=== PATIENT | female | born 1985 | race Two or more races ===

== ENCOUNTER 2021-05-08 12:10 | Inpatient (IN) | payer OTHER ==
[2021-05-08] MEDS: ELECTROLYTE-148 SOLN 1,000 ML IV SCH ×2 (13:15→15:30)
[2021-05-08 14:29] LABS: BASO % 0.3 % (0-2.0); EOS % 0.3 % (0-4.5); HEMOGLOBIN 12.7 GM/dL (10.7-15.3); LYMPH % 12.4 % (8-40); MCH 29.2 pg (25.7-33.7); MCHC 32.7 g/dl (32.0-36.0); MEAN CELL VOLUME 89.4 fl (80-96); MEAN PLT VOLUME 10.2 fl (7.5-11.1); PLATELET COUNT 211 10^3/uL (134-434); RBC 4.36 M/mm3 (3.60-5.2); RDW 14.2 % (11.6-15.6); WHITE BLOOD COUNT 11.5 K/mm3 (4.0-10.0)
[2021-05-08 14:41] LABS: INR 0.96 (0.83-1.09); PROTHROMBIN TIME (PATIENT) 11.8 SEC (9.7-13.0)
[2021-05-08] MEDS ORDERED: CITRIC ACID/SODIUM CITRATE 30 ML UNIT-DOSE CUP PO ONE (14:43)
[2021-05-08 14:44] LABS: ACTIVATED PTT 26.5 SECONDS (25.2-36.5)
[2021-05-08 14:47] LABS: CALCIUM 8.7 mg/dL (8.5-10.1)
[2021-05-08 14:48] LABS: BLOOD UREA NITROGEN 9.8 mg/dL (7-18)
[2021-05-08 14:51] LABS: CREATININE 0.4 mg/dL (0.55-1.3)
[2021-05-08] MEDS ORDERED: ONDANSETRON 4 MG/2 ML VIAL IVPUSH PRN (16:01)
[2021-05-08] MEDS ORDERED: OXYTOCIN 20 UNITS in 0.9% NS 20 UNIT/1,000 ML INFUS.BAG IV ONE ×2 (16:02→17:38)
[2021-05-08] MEDS ORDERED: PHENYLEPHRINE HCL 10 MG/1 ML SINGLE DOSE VIAL ONE (16:05)
[2021-05-08] MEDS ORDERED: morphine SULFATE/PF 0.5 MG/ML (2cc Syringe - QUVA) ONE (16:09)
[2021-05-08 17:17] VITALS: BMI 32.7
[2021-05-08] MEDS ORDERED: BENZOCAINE 28 GM HEMORRHOIDAL OINTMENT PR PRN (18:43)
[2021-05-08] MEDS ORDERED: oxyCODONE HCL 5 MG TABLET PO PRN ×2 (18:43)
[2021-05-08] MEDS ORDERED: WITCH HAZEL 50% (TUCKS) 40 PAD/JAR PAD TP PRN (18:43)
[2021-05-08] MEDS ORDERED: diphenhydrAMINE HCL 25 MG CAPSULE (FP) PO PRN (18:43)
[2021-05-08] MEDS ORDERED: BENZOCAINE 20% 57 GM BOTTLE TP PRN (18:43)
[2021-05-08] MEDS ORDERED: METHYLERGONOVINE MALEATE 0.2 MG/1 ML AMP IM PRN (18:43)
[2021-05-08] MEDS ORDERED: OXYTOCIN 20 UNITS in 0.9% NS 20 UNIT/1,000 ML INFUS.BAG IV SCH (18:45)
[2021-05-08] MEDS ORDERED: IBUPROFEN 800 MG/8 ML IJ IVPB ONE (19:25)
[2021-05-08] MEDS: IBUPROFEN 800 MG/8 ML IJ IVPB PRN (19:32)
[2021-05-08] MEDS ORDERED: ONDANSETRON 4 MG/2 ML VIAL ONE (19:59)
[2021-05-09] MEDS: CEFAZOLIN 1 GM/D5W 1 GM/50 ML BAG IVPB SCH ×2 (01:04→09:40)
[2021-05-09] MEDS: ENOXAPARIN NA (PORCINE) 40 MG/0.4 ML DISP.SYRIN SQ SCH (09:39)
[2021-05-09] MEDS: IBUPROFEN 800 MG/8 ML IJ IVPB PRN (09:40)
[2021-05-09 10:21] LABS: BASO % 0.2 % (0-2.0); EOS % 0.1 % (0-4.5); HEMATOCRIT 35.8 % (32.4-45.2); HEMOGLOBIN 11.6 GM/dL (10.7-15.3); LYMPH % 10.1 % (8-40); MCH 29.2 pg (25.7-33.7); MCHC 32.5 g/dl (32.0-36.0); MEAN CELL VOLUME 89.8 fl (80-96); MEAN PLT VOLUME 9.9 fl (7.5-11.1); MONO % 4.7 % (3.8-10.2); NEUT % 84.9 % (42.8-82.8); PLATELET COUNT 193 10^3/uL (134-434); RBC 3.99 M/mm3 (3.60-5.2); RDW 14.1 % (11.6-15.6); WHITE BLOOD COUNT 12.2 K/mm3 (4.0-10.0)
[2021-05-09] MEDS: ACETAMINOPHEN 325 MG TABLET (FP) PO PRN ×2 (18:37→23:12)
[2021-05-09] MEDS: SIMETHICONE 80 MG TAB.CHEW (FP) PO PRN ×2 (18:37→23:12)
[2021-05-09] MEDS: IBUPROFEN 600 MG TABLET (FP) PO PRN ×2 (18:37→23:12)
[2021-05-09] MEDS ORDERED: BISACODYL 10 MG SUPP.RECT PR PRN (18:44)
[2021-05-09] MEDS: DEXTROSE 5%-LACTATED RINGERS 1,000 ML IV SCH ×2 (21:22→21:23)
[2021-05-09] MEDS: ELECTROLYTE-148 SOLN 1,000 ML IV SCH (21:23)
[2021-05-10] MEDS: ACETAMINOPHEN 325 MG TABLET (FP) PO PRN ×2 (10:03→17:39)
[2021-05-10] MEDS: SIMETHICONE 80 MG TAB.CHEW (FP) PO PRN ×2 (10:03→17:40)
[2021-05-10] MEDS: ENOXAPARIN NA (PORCINE) 40 MG/0.4 ML DISP.SYRIN SQ SCH (10:03)
[2021-05-10] MEDS: IBUPROFEN 600 MG TABLET (FP) PO PRN ×2 (10:04→17:40)
[2021-05-10] MEDS ORDERED: SENNOSIDES/DOCUSATE COMBO (SENNA PLUS) TABLET (UD) PO PRN (22:00)
[2021-05-11] MEDS: ACETAMINOPHEN 325 MG TABLET (FP) PO PRN (02:13)
[2021-05-11] MEDS: SIMETHICONE 80 MG TAB.CHEW (FP) PO PRN (02:13)
[2021-05-11] MEDS: IBUPROFEN 600 MG TABLET (FP) PO PRN (02:14)
[2021-05-11 08:40] LABS: BASO % 0.2 % (0-2.0); EOS % 0.6 % (0-4.5); HEMATOCRIT 35.5 % (32.4-45.2); HEMOGLOBIN 11.5 GM/dL (10.7-15.3); LYMPH % 14.5 % (8-40); MCH 29.2 pg (25.7-33.7); MCHC 32.3 g/dl (32.0-36.0); MEAN CELL VOLUME 90.4 fl (80-96); MEAN PLT VOLUME 9.4 fl (7.5-11.1); MONO % 4.7 % (3.8-10.2); PLATELET COUNT 213 10^3/uL (134-434); RBC 3.93 M/mm3 (3.60-5.2); RDW 14.3 % (11.6-15.6); WHITE BLOOD COUNT 13.5 K/mm3 (4.0-10.0)
[2021-05-11] MEDS: ENOXAPARIN NA (PORCINE) 40 MG/0.4 ML DISP.SYRIN SQ SCH (09:40)
[2021-05-11 10:31] VITALS: BP 124/79; PULSE 74; TEMP 98
== END 2021-05-11 12:45 | disposition home or self-care (01) | DRG 540 ==
LOC: JDEL 12:10 → JLDR 12:45 → J3W 21:19
PROVIDERS: ADMIT Obstetrics & Gynecology; ATTEND Obstetrics & Gynecology
PROC: 10D00Z1 Extraction of Products of Conception, Low, Open Approach (ICD-10-PCS; principal; 2021-05-08)
PROC: 0UL70ZZ Occlusion of Bilateral Fallopian Tubes, Open Approach (ICD-10-PCS; 2021-05-08)
DX: O34.211 Maternal care for low transverse scar from previous cesarean delivery (principal); Z3A.39 39 weeks gestation of pregnancy; Z37.0 Single live birth; Z30.2 Encounter for sterilization
CPT/HCPCS: 36415; 80048; 85025; 85610; 85730; 86780; 86850; 86900; 86901; 88302-TC; 88307-TC; C9803; U0003; U0005

== ENCOUNTER 2022-09-17 17:02 | Emergency (ER) | payer OTHER ==
[2022-09-17 17:21] VITALS: BP 122/79; PULSE 68; RESP 20; TEMP 98.1; BMI 29.0
[2022-09-17] MEDS ORDERED: MAG HYDROX/AL HYDROX/SIMETH 30 ML UNIT-DOSE CUP PO ONE (21:10)
[2022-09-17] MEDS ORDERED: ONDANSETRON 4 MG/2 ML VIAL IVPUSH ONE (21:10)
[2022-09-17] MEDS ORDERED: ACETAMINOPHEN 1000 MG/100 ML BAG IVPB ONE (21:10)
[2022-09-17] MEDS ORDERED: FAMOTIDINE 20 MG/50 ML IVPB 20 MG/50 ML MG IVPB ONE ×2 (21:10→21:51)
[2022-09-17] MEDS ORDERED: SUCRALFATE 1 GM/10 ML UNIT DOSE CUPS PO ONE (21:10)
[2022-09-17] MEDS ORDERED: ACETAMINOPHEN INJECTION 100 ML IVPB ONE (21:50)
[2022-09-17] MEDS ORDERED: SUCRALFATE 1 GM TABLET (FP) ONE (21:50)
[2022-09-17] MEDS ORDERED: ONDANSETRON 4 MG/2 ML VIAL ONE (21:51)
[2022-09-17] MEDS ORDERED: MAG HYDROX/AL HYDROX/SIMETH 30 ML UNIT-DOSE CUP ONE (21:51)
[2022-09-17 22:02] LABS: BASO % 0.4 % (0-2.0); EOS % 1.6 % (0-4.5); HEMATOCRIT 39.7 % (32.4-45.2); HEMOGLOBIN 13.2 GM/dL (10.7-15.3); LYMPH % 30.1 % (8-40); MCH 28.9 pg (25.7-33.7); MCHC 33.2 g/dl (32.0-36.0); MEAN CELL VOLUME 87.2 fl (80-96); MEAN PLT VOLUME 9.7 fl (7.5-11.1); MONO % 3.9 % (3.8-10.2); PLATELET COUNT 268 10^3/uL (134-434); RBC 4.55 M/mm3 (3.60-5.2); RDW 12.8 % (11.6-15.6); WHITE BLOOD COUNT 8.6 K/mm3 (4.0-10.0)
[2022-09-17 22:06] LABS: ALBUMIN 4.2 g/dl (3.4-5.0); BLOOD UREA NITROGEN 12.2 mg/dL (7-18); CALCIUM 9.3 mg/dL (8.5-10.1)
[2022-09-17 22:09] LABS: CREATININE 0.5 mg/dL (0.55-1.3)
[2022-09-17 22:10] LABS: BILIRUBIN,TOTAL 0.5 mg/dL (0.2-1)
[2022-09-17 22:11] LABS: TOT PROT 7.9 g/dl (6.4-8.2)
== END 2022-09-17 23:37 | disposition home or self-care (01) ==
LOC: JER 17:02
PROC: 3E033GC Introduction of Other Therapeutic Substance into Peripheral Vein, Percutaneous Approach (ICD-10-PCS; principal; 2022-09-17)
DX: R10.11 Right upper quadrant pain (principal); K76.0 Fatty (change of) liver, not elsewhere classified; R11.0 Nausea; K82.8 Other specified diseases of gallbladder
CPT/HCPCS: 36415; 76705-TC; 80053; 83690; 84703; 85025; 99284-25

== ENCOUNTER 2023-05-08 17:26 | Emergency (ER) | payer OTHER ==
[2023-05-08 17:37] VITALS: BP 125/88; PULSE 82; RESP 18; TEMP 99.1; BMI 26.4
[2023-05-08 19:10] LABS: HCG,QUALITATIVE URINE Negative
[2023-05-08] MEDS ORDERED: LIDOCAINE 5% TOPICAL PATCH TP ONE (19:14)
[2023-05-08] MEDS ORDERED: ACETAMINOPHEN 500 MG TABLET (FP) PO ONE (19:14)
[2023-05-08] MEDS ORDERED: KETOROLAC TROMETHAMINE 30 MG/1 ML VIAL IM ONE (19:14)
[2023-05-08] MEDS ORDERED: CYCLOBENZAPRINE HCL 10 MG TABLET (FP) PO ONE ×2 (19:14→19:16)
[2023-05-08] MEDS ORDERED: LIDOCAINE 5% TOPICAL PATCH ONE (19:16)
[2023-05-08] MEDS ORDERED: ACETAMINOPHEN 500 MG TABLET (FP) ONE (19:16)
[2023-05-08] MEDS ORDERED: CYCLOBENZAPRINE HCL 10 MG TABLET (FP) ONE (19:16)
[2023-05-08] MEDS ORDERED: KETOROLAC TROMETHAMINE 30 MG/1 ML VIAL ONE (19:16)
[2023-05-08 19:21] LABS: EPI CELLS 31 /uL (0-25.1); HYALINE CASTS 0 /uL (0-3.1); PH,URINE 5.5 (5.0-8.0); URINE APPEARANCE CLEAR; URINE BACTERIA 290 /uL (0-1359); URINE BILIRUBIN NEGATIVE (NEGATIVE); URINE COLOR YELLOW; URINE GLUCOSE (UA) NEGATIVE (NEGATIVE); URINE KETONE NEGATIVE (NEGATIVE); URINE LEUK ESTERASE NEGATIVE (NEGATIVE); URINE NITRITE NEGATIVE (NEGATIVE); URINE PROTEIN NEGATIVE (NEGATIVE); URINE UROBILINOGEN 0.2 mg/dL (0.2-1.0); URINE WBC 11 /uL (0-25.8)
[2023-05-08 20:01] LABS: URINE RBC 42.8 /uL (0-23.9)
[2023-05-09] MEDS ORDERED: LIDOCAINE PATCH REMOVAL MC SCH (07:00)
== END 2023-05-08 20:31 | disposition home or self-care (01) ==
LOC: JER 17:26 → JERFT 17:26
PROC: 3E0233Z Introduction of Anti-inflammatory into Muscle, Percutaneous Approach (ICD-10-PCS; principal; 2023-05-08)
DX: M54.50 Low back pain, unspecified (principal)
CPT/HCPCS: 81003; 84703; 99284-25